=== PATIENT | male | born 1995 | race American Indian/Alaskan Native ===

== ENCOUNTER 2022-01-04 09:11 | Emergency (ER) | payer OTHER ==
--- NOTE | 2022-01-04 09:52 | Emergency Department Report ---
ED CPR HPI - General Chief Complaint: Cardiac Arrest/CPR Stated Complaint: CARDIAC ARREST/IN CUSTODY Time Seen by Provider: 01/04/22 09:40 Source: EMS Mode of arrival: Stretcher Limitations: Other - History of Present Illness Initial Comments: Patient is a 26-year-old male brought in from [facility] for cardiac arrest. He was reportedly found with his head in the toilet this morning at approximately with last known well time at approximately 6:45 AM. EMS reports patient in asystole on arrival. He was subsequently intubated with initiation of ACLS. He received a total of 3 rounds of epinephrine in route to the hospital with no change in rhythm. - Related Data Allergies Allergy/AdvReac Type Severity Reaction Status Date / Time Unable to Assess Allergy Unverified 01/04/22 09:31 ED Review of Systems ROS: Stated complaint: CARDIAC ARREST/IN CUSTODY Other details as noted in HPI Comment: Unobtainable due to pts medical conditions ED Physical Exam - General Limitations: Other General appearance: other (Unresponsive) - Head Head exam: Present: atraumatic, normocephalic - Eye Eye exam: Present: other (Pupils fixed and dilated) - Respiratory Respiratory exam: Present: other (No spontaneous respirations. Patient is intubated and being ventilated manually.) - Cardiovascular Cardiovascular Exam: Present: other (No palpable pulse) - GI/Abdominal GI/Abdominal exam: Present: soft - Rectal Rectal exam: Present: deferred - Neurological Exam Neurological exam: Present: other (GCS 3 T) - Skin Skin exam: Present: warm, dry, intact, normal color ED Medical Decision Making - Medical Decision Making ACLS measures continued in the emergency department for an additional 3 rounds with no change in rhythm. Patient . Differential diagnosis for primary cause of includes drowning, cardiac arrest. Critical care attestation.: If time is entered above; I have spent that time in minutes in the direct care of this critically ill patient, excluding procedure time. ED Disposition Clinical Impression: Cardiac arrest Disposition: 20 Is pt being admited?: No
== END 2022-01-04 20:30 ==
LOC: ED 09:11
DX: I46.9 Cardiac arrest, cause unspecified (principal)
CPT/HCPCS: 92950; 99285